=== PATIENT | female | born 1955 | race Caucasian/White ===

== ENCOUNTER 2023-06-23 14:25 | Emergency (ER) | payer BC, OTHER ==
[2023-06-23] MEDS ORDERED: Clopidogrel 75 MG Tab ONE (14:32)
[2023-06-23] MEDS ORDERED: Sodium Chloride 0.9% 10 ML Syringe FLUSH PRN ×2 (14:32→14:33)
[2023-06-23] MEDS ORDERED: Sodium Chloride 0.9% 2.5 ML Syringe FLUSH PRN ×2 (14:32→14:33)
[2023-06-23] MEDS ORDERED: Sodium Chloride 0.9% 1,000 ML IV ONE (14:33)
[2023-06-23] MEDS ORDERED: Clopidogrel 75 MG Tab PO ONE ×2 (14:33→15:06)
[2023-06-23] MEDS ORDERED: Nitroglycerin/D5W 25 MG/250 ML BOTTLE IV SCH (14:45)
[2023-06-23 14:54] LABS: BASOPHILS ABSOLUTE AUTO 0.1 K/uL (0.0-0.1); BASOPHILS PERCENT AUTO 0.8 % (0.0-1.5); EOSINOPHILS ABSOLUTE AUTO 0.4 K/uL (0.0-0.7); HEMATOCRIT 48.2 % (36.0-46.0); HEMOGLOBIN 16.2 g/dL (12.0-16.0); LYMPHOCYTES ABSOLUTE AUTO 3.1 K/uL (0.6-2.4); LYMPHOCYTES PERCENT AUTO 40.4 % (16.0-40.0); MEAN CORPUSCULAR HEMOGLOBIN 30.3 pg (27.0-32.0); MEAN CORPUSCULAR HGB CONC 33.6 g/dL (31.0-37.0); MEAN CORPUSCULAR VOLUME 90.3 fL (80.0-98.0); MONOCYTES ABSOLUTE AUTO 0.6 K/uL (0.0-0.8); MONOCYTES PERCENT AUTO 8.1 % (0.0-15.0); NEUTROPHILS ABSOLUTE AUTO 3.5 K/uL (1.4-5.7); NEUTROPHILS PERCENT AUTO 45.7 % (48.0-80.0); NRBC ABSOLUTE 0 K/uL; PLATELET COUNT,PLT 264 K/uL (150-400); RED BLOOD CELL COUNT 5.34 M/uL (4.30-5.90); WHITE BLOOD CELL COUNT,WBC 7.67 K/uL (4.0-11.0)
[2023-06-23] MEDS ORDERED: Tenecteplase 50 MG Kit ONE (15:06)
[2023-06-23] MEDS ORDERED: Heparin Sodium 5,000 Units/ML Vial IVPUSH ONE (15:06)
[2023-06-23] MEDS ORDERED: Heparin Sodium 5,000 Units/ML Vial ONE (15:06)
[2023-06-23] MEDS ORDERED: Heparin Sodium/0.45% NaCl 500 ML ONE (15:06)
[2023-06-23] MEDS ORDERED: Tenecteplase 50 MG Kit IV ONE (15:07)
[2023-06-23] MEDS ORDERED: Ondansetron 4 MG/2 ML SDV IVPUSH ONE (15:08)
[2023-06-23] MEDS ORDERED: Iopamidol 755 MG/ML 500 ML Multipack Bottle IVPUSH STA (15:09)
[2023-06-23 15:14] LABS: A/G RATIO 1.1 (0.9-1.6); BILIRUBIN TOTAL 0.3 mg/dL (0.2-1.0); CALCIUM 8.7 mg/dL (8.5-10.1); CARBON DIOXIDE,CO2 25.2 mmol/L (21.0-32.0); CREATININE 1.2 mg/dL (0.6-1.0); EST CRCL DRUG DOSING (CG) 41.5 mL/min; MAGNESIUM 2.1 mg/dL (1.8-2.4); PROTEIN TOTAL,TP 7.6 g/dL (6.4-8.2)
[2023-06-23] MEDS ORDERED: fentaNYL 100 MCG/2 ML SDV IVPUSH ONE ×2 (15:15→16:17)
[2023-06-23] MEDS ORDERED: Naloxone 0.4 MG/ML SDV IVPUSH PRN (15:15)
[2023-06-23 15:22] LABS: INR 0.98 (0.86-1.11)
[2023-06-23] MEDS ORDERED: Heparin Sodium/0.45% NaCl 500 ML IV SCH (15:30)
== END 2023-06-23 16:50 ==
LOC: MW.ED 14:25
DX: I21.3 ST elevation (STEMI) myocardial infarction of unspecified site (principal)
CPT/HCPCS: 36415; 37195; 71045; 71275; 80053; 83735; 84484; 85025; 85610; 93005; 96365; 96366; 96368; 96375; 96376; 99285; A9270; J1644; J2405; J3010; J3101; J3490; J7030; Q9967; 93010; 99291; 99292